=== PATIENT | female | born 1975 | race Caucasian/White ===

== ENCOUNTER → 2016-08-02 | Outpatient (CLI) | payer OTHER ==
[~2016-08-02] MED LIST: BACT800T5 PO; DIFL150T PO; IOHEXOL 300 MG/ML 50 ML BTL (for RAD DIAG) I-UTERINE ONE; NAPR500 PO
--- NOTE | 2016-08-02 14:53 | RADRPT ---
EXAM DATE/TIME: 08/02/2016 14:10 [place] COMPARISON: No previous studies available for comparison. INDICATIONS : Evaluate/confirm for tubal ligation. 0.6 minutes 2 CONTRAST: 8 cc Omnipaque 300 (iohexol) DEVICE: Samuels Cannula MEDICAL HISTORY : None. SURGICAL HISTORY : None. ENCOUNTER: Initial ACUITY: 1 day PAIN SCORE: 5/10 LOCATION: pelvis FINDINGS: Preliminary film shows evedence of BTI. Technical aspect of the cervical cannulation injection of c ontrast performed by the referring physician. Examination is performed under fluoroscopic control. The uterus is normal. No defects are appreciated. There is no filling of the fallopian tubes and no passage into the pelvis bilaterally. CONCLUSION: Bilateral tubal interruption has been successful. Normal uterus without spill on eith er side. Vik Casarez MD on August 02, 2016 at 14:49 Board Certified Radiologist. This report was verified electronically.
== END ==
LOC: HRAD 13:40
PROVIDERS: ATTEND Obstetrics & Gynecology
DX: Z30.8 Encounter for other contraceptive management (principal); Z98.51 Tubal ligation status
CPT/HCPCS: 58340; 74740; Q9967